=== PATIENT | female | born 1970 | race African-American/Black ===

== ENCOUNTER 2024-11-29 22:49 | Emergency (ER) | payer BC, SELFPAY ==
[2024-11-30 00:39] VITALS: BMI 46.0
[2024-11-30 00:45] VITALS: BP 128/71
[2024-11-30 00:45] LABS: ALT (SGPT) 14 U/L (0-35); AST (SGOT) 15 U/L (14-36); Albumin 4.1 g/dl (3.5-5.0); Alkaline Phosphatase 87 U/L (38-126); Blood Urea Nitrogen 14 mg/dl (7-17); Calcium 9.6 mg/dl (8.4-10.2); Carbon Dioxide 26 mmol/L (22-30); Chloride 109 mmol/L (98-107); Estimated Creatinine Clearance 8 ml/min; Glucose 168 mg/dl (70-99); Potassium 3.8 mmol/L (3.5-5.1); Sodium 144 mmol/L (135-145); Total Bilirubin 0.6 mg/dl (0.2-1.3); eGFR > 60.00
[2024-11-30 00:46] LABS: Urine Albumin Negative (Neg - Trace); Urine Bilirubin Negative (Negative); Urine Character Clear (Clear); Urine Color Yellow; Urine Glucose 4+ (Negative); Urine Ketone Negative (Negative); Urine Leukocyte 1+ (Negative); Urine Nitrite Negative (Negative); Urine Occult Blood Negative (Negative); Urine Urobilinogen Negative (Neg - 1+)
[2024-11-30 00:47] LABS: % Basophils 0.7 % (0-2); % Eosinophils 0.9 % (0-6); % Immature Granulocytes 1.2 % (0-0.5); % Lymphocytes 32.8 % (20.5-51.1); % Monocytes 6.4 % (1.7-9.3); Absolute Basophils 0.1 10^3/uL (0-0.2); Absolute Eosinophils 0.1 10^3/uL (0-0.7); Absolute Immature Granulocytes 0.1 10^3/uL (0-0.05); Absolute Lymphocytes 2.5 10^3/uL (1.2-3.4); Absolute Monocytes 0.5 10^3/uL (0.1-0.6); Absolute Neutrophils 4.4 10^3/uL (1.4-6.5); Hematocrit 38.2 % (37.0-47.0); Hemoglobin 12.4 g/dL (12.0-16.0); Mean Corp Hgb Conc. 32.5 g/dL (33.0-37.0); Mean Corpuscular Hgb 27.9 pg (27.0-31.0); Nucleated Red Blood Cells % 0 %; Platelet Count 337 10^3/uL (130-400); Red Blood Cell Count 4.44 10^6/uL (4.20-5.40); Red Cell Dist. Width 15.9 % (11.5-14.5); White Blood Cell Count 7.5 10^3/uL (4.8-10.8)
--- NOTE | 2024-11-30 00:48 | ED.GENMED ---
History of Present Illness
General
Chief Complaint: Skin Problem
Source: patient
Time Seen by Provider: 11/30/24 00:38
History of Present Illness
History of Present Illness:
54-year-old female with past medical history of [id number] diabetes, hyperlipidemia, diverticulitis presenting to the emergency department for evaluation of erythema, pain and mild edema to the right lower extremity that she noticed 3
days ago. Patient applied a topical witch natalia and hydroperoxide to the affected area but states this did not do anything for her. She notes that a few years ago she had to be admitted for a skin infection due to a bee sting and states that this
does appear similar to when she needed admission. Patient denies any fevers, chills, rigors or any other concerns. She does note that her last A1c was downtrending down to around 6.8 and that she monitors her blood sugars daily and she usually
fluctuates anywhere between 120 and 160.
Past History
Past History
ED Past Medical History: Hypercholesterolemia and NIDDM
ED Past Surgical History: Gynecological, Orthopedic and Other (merena insertion)
Social History
Tobacco: Non-smoker
Alcohol: None
Drug: None
Personal: Single
Living: with family
Employment: Employed
Review of Systems
Review of Systems
All Other Systems: ROS reviewed and negative except as documented in HPI and ROS
Phy Exam
Physical Exam
Physical Exam:
GENERAL: Alert , in no apparent distress
EYE: conjunctiva clear
Head: Normocephalic atraumatic
NECK: Supple,
ENT: mmm.
LUNGS: no acute respiratory distress
NEUROLOGICAL: Alert and oriented
SKIN: Warm and dry, there is mild erythema along the distal aspect of the right lower extremity, mainly concentrated along the anterior surface. No streaking or lymphangitis. Easily palpable pedal and tibial pulses bilaterally. Cap refill less
than 2 seconds. Sensation grossly intact to light touch.
MUSCULOSKELETAL: well perfused.
PSYCH: Normal and appropriate interaction.
Scores
Heart Failure Risk
Heart Failure Risk Score: Not Applicable
Heart Score for Chest Pain Patients
STEMI patient?: Not applicable
Withdrawal Assessment of Alcohol
Withdrawal Assessment Completed?: Not applicable
Course
Orders/Labs/Results
Orders:
Orders
11/30/24 00:08
Cardiac Monitoring- Treatment ONCE
11/30/24 00:19
Complete Blood Count/With Diff Urgent
Comprehensive Metabolic Panel Urgent
Lactic Acid Q4H
Comment: ON ICE, CANCEL 2ND ORDER IF FIRST LACTIC ACID LEVEL <2
Lyme Progressive Urgent
Date Specimen was Collected: 11/30/24
Time Specimen was Collected: 00:09
Comment: ADD ON
Blood Culture Q20M
ALISON Source: Blood/Venous
Specimen Description:
Comment: Urgent from separate sites. If patient screens positive for possible sepsis
11/30/24 00:24
Urinalysis Reflex To Culture Urgent
Date Specimen was Collected: 11/30/24
Time Specimen was Collected: 00:09
Urine Microscopic Reflex Cult Urgent
Urine Culture Urgent
ALISON Source: U
Specimen Description:
Date Specimen was Collected: 11/30/24
Time Specimen was Collected: 00:09
11/30/24 00:52
Add On- LAB Urgent
Tests Added?: lyme progressive
11/30/24 00:57
Cephalexin Monohydrate [Keflex] 500 mg PO NOW STA
Abnormal Lab Results
11/30/24 11/30/24
00:19 00:24
MCHC 32.5 L g/dL
(33.0-37.0)
RDW 15.9 H %
(11.5-14.5)
Abs Immat Gran (auto) 0.1 H 10^3/uL
(0-0.05)
Immature Gran % 1.2 H %
(0-0.5)
Chloride 109 H mmol/L
(98-107)
Glucose 168 H mg/dl
(70-99)
Leukocyte Esterase Rfl 1+ A
(Negative)
Urine WBC (Reflex) 11-15 A /HPF
(0-5)
Urine Bacteria (Reflex) Moderate A
(Negative)
Urine Glucose 4+ A
(Negative)
11/30/24 00:19
11/30/24 00:19
Vital Signs
Initial and Last Documented VS:
Initial Vital Signs
Temp Pulse Resp Pulse Ox
98.2 F 74 20 99
11/29/24 22:55 11/29/24 22:55 11/29/24 22:55 11/29/24 22:55
Last Documented Vital Signs
Temp Pulse Resp BP Pulse Ox
98.2 F 66 13 128/71 98
11/29/24 22:55 11/30/24 00:45 11/30/24 00:45 11/30/24 00:45 11/30/24 00:45
MDM/Problems Addressed
Differential Diagnosis Includes:
Cellulitis, venous stasis, erythema migrans/Lyme's rash, DVT
MDM/Problems Addressed:
54-year-old female presenting to the emergency department for evaluation of erythema and pain to the anterior right lower extremity x 3 days. Based off presentation I am most suspicious for a superficial cellulitis. Patient is without fevers,
overall well-appearing and in no acute distress. She reports her diabetes is under control on oral medications at this time. Given she is hemodynamically stable and overall well-appearing I do think it would be reasonable to trial outpatient oral
antibiotics for the time being. Will use a skin marker to demarcate the borders as they are currently. We did discuss possibility of admission for IV antibiotics pending patient's workup although I do think it is reasonable to trial oral
antibiotics and the patient as well appearing that she is.
Chronic conditions affecting care: DM
*Pulse Oximetry
Patient hypoxic: no
*Critical Care Note
Total Time (30-74mins, 75-104mins- exclusive of procedures): Not Applicable
ED Attending Note
-
Portions of this chart may have been created with voice recognition software.� Occasional wrong word or��sound alike� substitutions may have occurred due to the inherent limitations of voice recognition software.
Discharge Plan
Departure
Patient Disposition: Home (Routine Discharge)
Date of Disposition: 11/30/24
Time of Disposition: 01:24
Patient with high blood pressure during this ER visit?: No
Discharge Problem:
Cellulitis of right anterior lower leg
Instructions: Cellulitis (Skin Infection), Adult (DC)
Prescriptions:
New
cephalexin 500 mg tablet
500 mg PO BID 10 Days Qty: 19 0RF
No Action
metformin 500 MG tablet
1,000 mg PO Daily
atorvastatin 10 mg Tablet
10 mg PO DAILY
metformin 1,000 mg Tablet
1,500 mg PO QPM
Probiotic 3 billion cell Capsule
3,000 mmu cells PO DAILY
Jardiance 25 mg Tablet
25 mg PO QPM
multivitamin Tablet
1 tab PO DAILY
Januvia 100 mg Tablet
100 mg PO DAILY
acetaminophen 325 mg Tablet
650 mg PO Q4HPRN PRN (Reason: mild pain) Qty: 30 0RF
Rx Instructions:
DO NOT exceed >4000 mg daily while on Jamul.
1 Jamul tab = 325 mg of Tylenol.
Rybelsus 7 mg Tablet
7 mg PO DAILY
Referrals:
UNKNOWN - PT DOES,NOT KNOW [Family Provider] -
Interventions
Interventions:
*Risk Screen - Suicide Last Done: 11/29/24 22:55
*General Assessment Last Done: 11/29/24 22:55
*Neglect/Abuse Screening Last Done: 11/30/24 01:40
*ED- Fall Risk Assessment Last Done: 11/29/24 22:55
*ED COVID-19 Vaccine History Last Done: 11/29/24 22:55
*Nursing Disposition Last Done: 11/30/24 01:40
ED-Skin Assessment Last Done: 11/30/24 00:40
Discharge Date and Time
Discharge Date/Time: 11/30/24 01:40
Print Language: [place]
[2024-11-30 01:04] LABS: Lactic Acid 1.1 mmol/L (0.7-2.0)
[2024-11-30] MEDS: KEFLEX 500 MG PO (01:06)
[2024-11-30 02:04] LABS: Urine Mucus Few; Urine Red Blood Cell 0-2 /HPF (0-2); Urine Squamous Cell >30 /LPF (Few)
[2024-11-30 02:05] LABS: Urine Bacteria Moderate (Negative)
[2024-12-02 11:53] LABS: Lyme Antibody Screen, EIA Negative (Negative)
== END 2024-11-30 01:40 | disposition home or self-care (01) ==
LOC: EMR 22:49
PROVIDERS: EMERGENCY PHYSICIAN Student in an Organized Health Care Education/Training Program
DX: L03.115 Cellulitis of right lower limb (principal); E11.9 Type 2 diabetes mellitus without complications; E78.00 Pure hypercholesterolemia, unspecified
CPT/HCPCS: 99283; 80053; 81003; 81015; 83605; 85025; 86618; 87040; 87086